=== PATIENT | female | born 1965 | race Caucasian/White ===

== ENCOUNTER 2020-05-27 10:42 | Emergency (ER) | payer BC ==
[2020-05-27 11:51] LABS: HEMOGLOBIN 15.5 gm/dl (12.3-15.3); RED BLOOD COUNT 5.46 M/UL (4.00-5.10); WHITE BLOOD COUNT 5.8 K/UL (4.5-11.0)
[2020-05-27 12:09] LABS: BUN/CREATININE RATIO 11 (0-10)
[2020-05-27] MEDS ORDERED: OMNICEF 300 MG300 MG PO (14:26)
[2020-05-27] MEDS ORDERED: DOXYCYCLINE HY100 MG PO (14:26)
[2020-05-27] MEDS ORDERED: PHENERGAN 25 MG25 M1 PO (14:26)
== END 2020-05-27 14:37 | disposition home or self-care (01) ==
LOC: ER1 10:42
PROVIDERS: Family Medicine
DX: J18.9 Pneumonia, unspecified organism (principal); R11.0 Nausea; Z88.1 Allergy status to other antibiotic agents; Z95.5 Presence of coronary angioplasty implant and graft; Z86.16 Personal history of COVID-19
CPT/HCPCS: 36415; 71045; 80053; 81001; 82550; 82553; 83605; 83874; 84484; 85025; 96374; 99283; J0696